=== PATIENT | male | born 1995 | race Caucasian/White ===

== ENCOUNTER 2017-02-22 19:43 | Emergency (ER) | payer OTHER ==
[2017-02-22 20:12] VITALS: BP 119/63
--- NOTE | 2017-02-22 21:45 | RAD ---
HISTORY: Right ankle injury COMPARISONS: None VIEWS: 3, Frontal, lateral, and oblique views of the right ankle FINDINGS: BONE DENSITY: Normal. BONES: There is no displaced fracture. JOINTS: There is no arthropathy. ALIGNMENT: There is no dislocation. SOFT TISSUES: Unremarkable. OTHER FINDINGS: None. IMPRESSION: NO ACUTE OSSEOUS INJURY. IF SYMPTOMS PERSIST, RECOMMEND REPEAT IMAGING.
--- NOTE | 2017-02-22 22:06 | UC ---
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 PT WITH PAIN AT MEDIAL MALLEOLAR ZONE. PAIN WITH AMBULATION. - History of Current Complaint Chief Complaint: UCLowerExtremity Stated Complaint: ANKLE INJURY Time Seen by Provider: 02/22/17 21:58 Hx Obtained From: Patient Onset/Duration: Sudden Onset, Lasting Hours, Still Present Severity Initially: Moderate Severity Currently: Moderate Pain Intensity: 3 Pain Scale Used: 0-10 Numeric Aggravating Factor(s): Standing, Ambulation Alleviating Factor(s): Rest, Elevation Able to Bear Weight: Yes - WITH PAIN - Allergies/Home Medications Allergies/Adverse Reactions: Allergies Allergy/AdvReac Type Severity Reaction Status Date / Time No Known Allergies Allergy Verified 02/22/17 20:11 Home Medications: Home Medications Acetaminophen [Mapap] 1,000 mg PO PRN 02/22/17 [History] Amphetamine MIXED SALTS TAB* [Adderall TAB*] 02/22/17 [History] Lisdexamfetamine Dimesylate [Vyvanse] 02/22/17 [History] buPROPion TAB* [Wellbutrin TAB*] 02/22/17 [History] PMH/Surg Hx/FS Hx/Imm Hx Previously Healthy: Yes - Surgical History Surgical History: Yes Surgery Procedure, Year, and Place: LEFT ACL/MENISCUS REPAIR X2 - Family History Known Family History: Negative: Hypertension, Diabetes - Social History Alcohol Use: None Substance Use Type: None Smoking Status (MU): Never Smoked Tobacco Review of Systems Constitutional: Negative Skin: Negative Respiratory: Negative Cardiovascular: Negative Gastrointestinal: Negative Musculoskeletal: Arthralgia, Decreased ROM All Other Systems Reviewed And Are Negative: Yes Physical Exam Triage Information Reviewed: Yes Appearance: Well-Appearing, No Pain Distress, Well-Nourished Vital Signs: Initial Vital Signs Temp 98.1 F 02/22/17 20:06 Pulse 74 02/22/17 20:06 Resp 16 02/22/17 20:06 BP 119/63 02/22/17 20:06 Pulse Ox 98 02/22/17 20:06 Vital Signs Reviewed: Yes Eyes: Positive: Conjunctiva Clear ENT: Positive: Hearing grossly normal Neck: Positive: Supple Respiratory: Positive: No respiratory distress, No accessory muscle use Cardiovascular: Positive: Pulses Normal Abdomen Description: Positive: Soft Musculoskeletal: Positive: No Edema, ROM Limited @ - RIGHT ANKLE, Other: - TTP RIGHT ANKLE MEDIAL MALLEOLAR ZONE OVER TENDON. NO BONY TENDERNESS Neurological: Positive: Alert Psychological: Positive: Age Appropriate Behavior Skin: Negative: rashes Diagnostics - Radiology RIGHT ANKLE XRAY Xray Interpretation: No Acute Changes Radiology Interpretation Completed By: Radiologist Lower Extremity Course/Dx - Differential Dx/Diagnosis Provider Diagnoses: RIGHT ANKLE SPRAIN Discharge - Discharge Plan Condition: Stable Disposition: HOME Patient Education Materials: Ankle Sprain (ED) [facility] - Additional Instructions: XRAY NEGATIVE FOR FRACTURE OR DISLOCATION. REST, ICE, COMPRESS ELEVATE. GEL SPLINT AND CRUTCHES NEEDED FOR COMFORT. FOLLOW-UP WITH [facility] OR HERE IF NOT IMPROVING EXPECTED.
== END 2017-02-22 22:29 | disposition home or self-care (01) ==
LOC: UCEAST 19:43
DX: S93.401A Sprain of unspecified ligament of right ankle, initial encounter (principal); X58.XXXA Exposure to other specified factors, initial encounter; Y93.66 Activity, soccer; Y92.9 Unspecified place or not applicable
CPT/HCPCS: 99202; G0463

== ENCOUNTER 2019-04-01 00:23 | Observation (INO) | payer OTHER ==
--- NOTE | 2019-04-01 02:19 | ED ---
GI/ HPI - HPI Summary HPI Summary: This patient is a 23 year old M presenting to [facility] with a chief complaint of a ping pong ball in his rectum since 1999 today. Pt states he cannot get it out. The patient rates the pain 9/10 in severity. Has had some bleeding per rectum. NPO since 22:00. Pt does not have any medical problems, past surgeries, or FHx. - History of Current Complaint Chief Complaint: EDRectalPain Time Seen by Provider: 04/01/19 02:07 Stated Complaint: PING PONG ACCIDENT PER PT Hx Obtained From: Patient Onset/Duration: Started Hours Ago - since 1999 today Timing: Constant Severity: Moderate Current Severity: Moderate Pain Intensity: 9 Associated Signs and Symptoms: Positive: Other: - positive - pain Aggravating Factor(s): Nothing Alleviating Factor(s): Nothing - Allergy/Home Medications Allergies/Adverse Reactions: Allergies Allergy/AdvReac Type Severity Reaction Status Date / Time No Known Allergies Allergy Verified 04/01/19 00:41 PMH/Surg Hx/FS Hx/Imm Hx Previously Healthy: No Sensory History: Denies: Hx Cataracts, Hx Vision Problem, Hx Deafness EENT History: Denies: Hx Deafness, Hx Auditory Problems Neurological History: Denies: Hx Dementia - Surgical History Surgical History: Yes Surgery Procedure, Year, and Place: LEFT ACL/MENISCUS REPAIR X2 Infectious Disease History: No Infectious Disease History: Denies: Traveled Outside the [place] in Last 30 Days - Family History Known Family History: Negative: Hypertension, Diabetes - Social History Alcohol Use: None Substance Use Type: Reports: None Smoking Status (MU): Never Smoked Tobacco Review of Systems Constitutional: Other - positive - pain Genitourinary: Other - positive - ping pong ball in his rectum All Other Systems Reviewed And Are Negative: Yes Physical Exam - Summary Physical Exam Summary: Constitutional: Well-developed, Well-nourished, Alert. (-) Distressed Skin: Warm, Dry HENT: Normocephalic; Atraumatic Eyes: Conjunctiva normal Neck: Musculoskeletal ROM normal neck. (-) JVD, (-) Stridor, (-) Nuchal rigidity Cardio: Rhythm regular, rate normal, Heart sounds normal; Intact distal pulses; Radial pulses are 2+ and symmetric. (-) Murmur Pulmonary/Chest wall: Effort normal. (-) Respiratory distress, (-) Wheezes, (-) Rales Abd: Soft, (-) tenderness, (-) Distension, (-) Guarding, (-) Rebound Musculoskeletal: (-) Edema Rectal: unable to palpate foreign body Lymph: (-) Cervical adenopathy Neuro: Alert, Oriented x3 Psych: Mood and affect Normal Triage Information Reviewed: Yes Vital Signs On Initial Exam: Initial Vitals Temp Pulse Resp BP Pulse Ox 98.4 F 87 16 146/84 96 04/01/19 00:36 04/01/19 00:36 04/01/19 00:36 04/01/19 00:36 04/01/19 00:36 Vital Signs Reviewed: Yes Diagnostics - Vital Signs Vital Signs Temp Pulse Resp BP Pulse Ox 04/01/19 00:36 98.4 F 87 16 146/84 96 - Laboratory Result Diagrams: 04/01/19 03:55 04/01/19 03:55 Lab Statement: Any lab studies that have been ordered have been reviewed, and results considered in the medical decision making process. - Radiology ABD X-ray Radiology Interpretation Completed By: ED Physician Summary of Radiographic Findings: Impression: Foreign body noted in the rectum Re-Evaluation - Re-Evaluation First Eval Re-Evaluation Time: 05:58 Comment: Dr. Adams is at bedside performing procedure. GIGU Course/Dx - Course Course Of Treatment: 23-year-old male presents with foreign body in rectum, unable to palpate on rectal exam. Will consult surgry and GI regarding removal - Diagnoses Provider Diagnoses: Rectal foreign body - Physician Notifications Discussed Care Of Patient With: Rosibel Pink Time Discussed With Above Provider: 02:23 Instructed by Provider To: Other - Dr. Pink recommends calling GI. At 0230, Dr. Adams says she will discuss the pts case with Dr. Pink. Discharge ED - Sign-Out/Discharge Documenting (check all that apply): Sign-Out Patient Signing out patient TO: Varun Gibbons Patient Received Moderate/Deep Sedation with Procedure: No - Discharge Plan Referrals: No Primary Care Phys,NOPCP [Primary Care Provider] - - Attestation Statements Document Initiated by Scribe: Yes Documenting Scribe: Abdelrahman Leal Provider For Whom Scribe is Documenting (Include Credential): Dr. Vick Elizalde MD Scribe Attestation: I, Abdelrahman Leal, scribed for Dr. Vick Elizalde MD on 04/01/19 at 0732. Scribe Documentation Reviewed: Yes Provider Attestation: The documentation as recorded by the scribe, Abdelrahman Leal accurately reflects the service I personally performed and the decisions made by me, Dr. Vick Elizalde MD Status of Scribe Document: Viewed
[2019-04-01 04:08] LABS: ABS Eosinophils 0.3 10^3/ul (0-0.6); ABS Lymphocytes 2.8 10^3/ul (1.0-4.8); ABS Monocytes 0.9 10^3/ul (0-0.8); ABS Neutrophils 5.5 10^3/ul (1.5-7.7); Eosinophil % 2.8 %; Hematocrit 44 % (42-52); Hemoglobin 15.2 g/dL (14.0-18.0); Lymphocyte % 29.5 %; Mean Corpuscular HGB Conc 35 g/dL (31-36); Mean Corpuscular Hemoglobin 32 pg (27-31); Mean Corpuscular Volume 91 fL (80-94); Mean Platelet Volume 8.8 fL (7.4-10.4); Platelet Count 238 10^3/uL (150-450); Red Blood Count 4.84 10^6 /uL (4.18-5.48); Red Cell Distribution Width 12 % (10-15); White Blood Count 9.4 10^3/uL (3.5-10.8)
[2019-04-01 04:30] LABS: Albumin 4.7 g/dL (3.2-5.2); BUN/Creatinine Ratio 12.1 (8-20); C Reactive Protein 1.58 mg/L (<8.01); Calcium 9.6 mg/dL (8.6-10.3); EGFR African American 105.6 (>60); EGFR Non-African American 87.2 (>60); Globulin 2.3 g/dL (2-4); Potassium 3.9 mmol/L (3.5-5.0); Total Bilirubin 0.8 mg/dL (0.2-1.0)
[2019-04-01] MEDS ORDERED: fentaNYL* 50 MCG/ML 2 ML VIAL (100 MCG VIAL) ONE ×4 (04:33→23:06)
[2019-04-01] MEDS ORDERED: Midazolam* 1 MG/ML 10 ML VIAL (10 MG) ONE (04:33)
--- NOTE | 2019-04-01 08:56 | ED ---
Progress - Progress Note Progress Note: Patient is received as a sign out from Dr. Elizalde to Dr. Gibbons at 0700 shift change pending surgical/GI consult. 0832 - Dr. Zaragoza has evaluated the patient in ED, Dr. Zaragoza to admit the patient to his services. Re-Evaluation - Re-Evaluation First Eval Re-Evaluation Time: 08:32 Comment: Patient to be admitted to Dr. Zaragoza's services. Course/Dx - Course Course Of Treatment: Patient is received as a sign out from Dr. Elizalde to Dr. Gibbons at 0700 04/01/19 shift change pending surgical/GI consult. 0832 - Dr. Zaragoza has evaluated the patient in ED, Dr. Zaragoza to admit the patient to his services. - Diagnoses Provider Diagnoses: Rectal foreign body - Provider Notifications Discussed Care Of Patient With: Benson Zaragoza Time Discussed With Above Provider: 08:32 Instructed by Provider To: Other - 0832 - Dr. Zaragoza has evaluated the patient in ED, Dr. Zaragoza to admit the patient to his services. Discharge ED - Sign-Out/Discharge Documenting (check all that apply): Patient Departure - admit, Receiving Sign- Out Receiving patient FROM: Vick Elizalde - Discharge Plan Condition: Stable Disposition: ADMITTED TO [facility] Referrals: No Primary Care Phys,NOPCP [Primary Care Provider] - - Attestation Statements Document Initiated by Scribe: Yes Documenting Scribe: MEREDITH MIRANDA Provider For Whom Scribe is Documenting (Include Credential): BRADLY GIBBONS MD Scribe Attestation: I, MEREDITH MIRANDA, scribed for BRADLY GIBBONS MD on 04/01/19 at 0855. Status of Scribe Document: Ready
[2019-04-01] MEDS ORDERED: PEG 3000 GI LAVAGE* 1 GALLON PO ONE (08:59)
[2019-04-01] MEDS ORDERED: Ondansetron INJ* 2 MG/ML VIAL IV PRN (09:01)
[2019-04-01] MEDS: NS 0.9% 1000 ML** 1,000 ML IV SCH (09:34)
--- NOTE | 2019-04-01 10:23 | PRO ---
DATE: 04/01/19 - ROOM #333 REFERRING PHYSICIAN: Vick Elizalde MD PROCEDURE: Flexible sigmoidoscopy and attempted removal of sigmoid colon foreign body. INDICATION: Ping pong ball struck in the sigmoid colon. See preprocedure consult. The patient is afebrile with a normal white count. His bowel sounds are normal. Digital rectal was tolerated well. FINDINGS: Initial views show intact mucosa and no stool. There was no bleeding. There were a couple of small bruising points in the last few centimeters of rectum. Flexible sigmoidoscope was advanced and at about 25 to 30 cm encountered a round object. The largest Patricia net available was inserted and was able to get around the object an estimated 40%. It was seen that it was not folded over a majority of the object. At least 3 times it slipped off after seeming to be partially engaged. A change was then made for a double- channel scope. An ERCP balloon 15 mm was advanced beyond the foreign body and inflated. One could see that it engaged the foreign body as there was tension on the retrieval balloon as it was being withdrawn, but then it will slide through with a pop. It could not disengage the ping pong ball from the acute narrow angulation in the sigmoid colon. Trying with a double-channel scope again with the retrieval net deployed, it would not take an orientation separate from the retrieval balloon and thus provided no practical advantage. Attempts were made over an hour. IMPRESSION: Sigmoid colon foreign body - still retained, though with no sense of pressure necrosis or impending ischemia. Surgery consult will be obtained. It might seem reasonable to lavage from above in an attempt to wash the foreign body down to the rectum where under deeper sedation the rectum could be evacuated. The limits of this exam have been reached. The results of this were signed out to the emergency room attending and surgical consult. [id number]/[facility] #: [id number] FIONA
--- NOTE | 2019-04-01 10:40 | HP ---
AMENDED REPORT NOW INCLUDES DESIGNATED COSIGNER - ESIGNED BEFORE ADJUSTMENTS CC: [facility] * PRIORITY ADMISSION HISTORY AND PHYSICAL: DATE OF ADMISSION: This patient was seen on 04/01/19 in the [facility] Emergency Department. ATTENDING SURGEON: Dr. Benson Zaragoza * (dictated by Rafael De Jesus NP). CHIEF COMPLAINT: Rectal pain and bleeding. 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 yesterday evening. The patient states he cannot get it out. He initially rated the pain at 9/10 in severity. He has noticed some bleeding per rectum. He has had nothing to eat or drink since 10 p.m. last evening. He underwent an abdominal x-ray, which confirmed a 5 cm foreign body overlying the rectum. Dr. Adams performed a sigmoidoscopy in the emergency department and the foreign body is located at approximately [address] Zaragoza was consulted and explained to the patient that perhaps the ping pong ball could be dislodged and moved further down towards the rectum by drinking a GoLYTELY bowel prep laxative and then with exam under anesthesia in the operating room possibly could be extracted rectally. Dr. Zaragoza also explained to the patient if it could not be extracted rectally that he may require abdominal surgery. Dr. Zaragoza explained the rationale for the plan and the patient agrees to proceed with drinking the GoLYTELY. PAST MEDICAL HISTORY: Generally healthy. He does take medications for ADD. PAST SURGICAL HISTORY: Left ACL meniscus repair x2. MEDICATIONS: 1. Wellbutrin 300 mg p.o. daily. 2. Adderall 10 mg p.o. daily. 3. Lamictal 200 mg p.o. daily. 4. Vyvanse 70 mg p.o. daily. ALLERGIES: No known drug allergies. FAMILY HISTORY: No known anesthesia complications, bleeding tendencies or clotting disorders. SOCIAL HISTORY: He is a tom at [employer]; he has never smoked tobacco. He denies the use of substances and occasionally drinks alcohol. REVIEW OF SYSTEMS: Constitutional: No fevers or chills. Respiratory: No recent upper respiratory infections. Cardiovascular: No anginal chest pain. Gastrointestinal: No nausea or vomiting; last bowel movements was sometime yesterday before the incident of the insertion of the ping pong ball; no chronic constipation or diarrhea; since the incident, he did notice some rectal bleeding. Genitourinary: No dysuria. Musculoskeletal: Normal strength and tone. Neurologic: No headache or blurred vision. Psychiatric: Affect is appropriate. General: No previous anesthesia complications. No history of deep vein thrombosis or pulmonary embolism. No history of bleeding tendencies or blood transfusions. PHYSICAL EXAMINATION GENERAL SURVEY: The patient is a 23-year-old male, well developed, well nourished, in no acute distress. VITAL SIGNS: Height 5 feet 11 inches, weight 220 pounds, body mass index 30. Blood pressure 120/60, pulse 75 and regular, respiratory rate 18, temperature 98.4, O2 saturation 96% on room air. HEENT: Benign. NECK: Supple. No cervical lymphadenopathy. LUNGS: Breath sounds bilaterally clear and equal. HEART: Regular rate and rhythm. No murmurs or rubs appreciated. BACK: No CVA tenderness. ABDOMEN: Active bowel sounds, soft, nondistended. Mild tenderness in the suprapubic region in the left lower quadrant with deep palpation. No guarding. No obvious masses or organomegaly. No surgical scars. GENITALIA EXAM: Deferred. RECTAL EXAM: Done with sigmoidoscopy by Dr. Adams. MUSCULOSKELETAL: Full range of motion. No gross deformities. NEUROLOGIC: Alert and oriented x3, cooperative. SKIN: Warm, dry, intact. IMPRESSION: Rectal foreign body. PLAN: The patient will be admitted as an observation patient to the short stay surgical unit; he will drink GoLYTELY bowel prep laxative and then be kept n.p.o. for surgery by Dr. Zaragoza later today; he will be maintained on IV fluids and he will have pain medication and antiemetic available as needed. TIME SPENT: Sixty minutes with greater than 50% in [id number] history taking , physical examination, and coordination of care. RAFAEL DE JESUS NP [id number]/[facility] #: [id number] FIONA
--- NOTE | 2019-04-01 10:40 | CONS ---
GASTROENTEROLOGY CONSULT: DATE OF CONSULT: CONSULTING PHYSICIAN: Vick Elizalde MD REASON FOR CONSULT: Rectal foreign body. HISTORY OF PRESENT ILLNESS: This 23-year-old [place] yanely comes in stating a ping pong ball is trapped in his rectum. He says he was involved in activities with his girlfriend using various sex toys and says several items were inserted and came out, but a ping pong ball did not. He notes that others have been able to pass items, but he has not been able to do so. He strained quite a bit at home and had some bleeding. He had a meal of pasta at around 10:30 p.m. hoping to have things move through spontaneously. He states he has not had any trouble with his gastrointestinal tract before. His bowel habits is regular daily and without the use of laxatives. He has never had any abdominal surgery. He is generally in good health. PAST MEDICAL HISTORY: ADHD. MEDICATIONS AT HOME: 1. Wellbutrin. 2. Adderall. 3. Vyvanse. SOCIAL HISTORY: He is from [facility], [place] as he started college a little late. As far as he knows his his girlfriend is healthy. He has never had any rectal trauma or defecatory problems before. ROS - normal 12 points; no history of cardiac or pulmonary disease PHYSICAL EXAMINATION: He is a healthy-appearing young man in no overt distress. He is experiencing crampy abdominal pain sporadically in waves about every 5 to 10 minutes. There has not been any vomiting. HEENT exam is unremarkable. He is anicteric. He has no adenopathy. His lungs are clear. His heart sounds are normal. The abdomen is symmetric with normal bowel sounds , firm, but without any guarding. Perianal inspection is normal. Rectal reveals diminished sphincter tone, no palpable abnormality. Extremities show no edema. DIAGNOSTIC STUDIES/LAB DATA: Hemoglobin 15.2, hematocrit of 44, white count 9.4 , platelets 238. Chem profile normal. CRP 1.58. KUB: Foreign body projecting over the mid pelvis, midline with no free air. IMPRESSION: Rectal foreign body which given its round shape and lack of any edging will be difficult to extract. It has a low short term (hours) risk of direct injury but could cause pressure necrosis. Discussion was held with him regarding the sequential approach that will be taken using sigmoidoscopy and added various instruments, unsedated if the item is easily found and then with progressive sedation. He knows that admission and the operating room may be needed. 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 [id number]/[facility] #: [id number] MTDD
[2019-04-01] MEDS: Ketorolac INJ* 30 MG/ML 1 ML VIAL IV PRN (11:07)
--- NOTE | 2019-04-01 11:51 | PN ---
Progress Note - Progress Note Date of Service: 04/01/19 SOAP: Subjective: Patient seen and examined earlier in the ER at 0845 and now on the floor [address] Adams and Elsa Olivas, GUILLERMO He has ping pong ball in rectum, felt to be at about 15 cms from the anal verge and unable to be removed manually and with an endoscope He has no abdominal pain, no fever or tachycardia and has a normal WBC AXR reviewed Objective: Temp Pulse Resp BP Pulse Ox 97.6 F 67 18 139/75 100 04/01/19 10:45 04/01/19 10:45 04/01/19 10:45 04/01/19 10:45 04/01/19 10:45 PEX: Comfortable Lungs are clear Abd is soft and non-distended. NABS throughout. No tenderness, rigidity or guarding. No peritoneal irritation Rectal exam not performed at this time. Labs and AXR reviewed Assessment: Foreign body-ping pong ball in rectum. Unable to be removed with endoscope by Dr. Adams Plan: Will plan to take to operating room and use either spinal or general anesthetic later today to remove foreign body. Will attempt trans-anal removal (hopefully ball will have migrated to the distal rectum) and removal with direct visualization with appropriate retractors and visualization. Will also have flexible sigmoidoscope and upper operating scope in the OR for another attempt at endoscopic removal with anesthesia if trans-anal attempts fail. If these techniques are not successful, he will require laparoscopy and possible laparotomy with colotomy for removal. The patient has taken 2L of Go-Lytely to attempt to flush ball distally and he has tolerated this well. Will not give more, as ball may be obstructing lumen. PLAN: Anorectal exam under anesthesia, removal of rectal foreign body, possible intraoperative flexible sigmoidoscopy, possible diagnostic laparoscopy, possible exploratory laparotomy with colotomy, possible colon resection, possible colostomy. The procedure was discussed in detail with the patient and the risks of, but not limited to, of bleeding, infection, abscess, colon perforation, injury to peritoneal and retroperitoneal structures, possible bowel resection, possible ostomy, anesthetic risks, discomfort, and blood clots were all explained. He gives his informed consent to proceed.
[2019-04-01] MEDS ORDERED: Lidocaine 1% w EPI 1:200,000* SDV 30 ML VIAL ONE (18:19)
[2019-04-01] MEDS ORDERED: Bupivacaine 0.5%* 50 ML MDV VIAL ONE (18:20)
[2019-04-01] MEDS ORDERED: Lidocaine 2% JELLY* 20 ML (for OR use) ONE (18:20)
[2019-04-01] MEDS ORDERED: Midazolam* 1 MG/ML 2 ML VIAL (2 MG) ONE (18:28)
[2019-04-01] MEDS ORDERED: Propofol* 10 MG/ML 20 ML BTL ONE (18:31)
[2019-04-01] MEDS ORDERED: Rocuronium* 10 MG/ML VIAL ONE ×2 (18:32→21:15)
[2019-04-01] MEDS ORDERED: Lidocaine 2% PF * 5 ML VIAL ONE (18:32)
[2019-04-01] MEDS ORDERED: Piperacillin/Tazobactam VIAL*) 3.375 GM VIAL (COMPD & OVERRIDE) IVPB ONE (21:12)
[2019-04-01] MEDS ORDERED: Bupivacaine 0.25% W/EPI* 10 ML SDV ONE (21:13)
[2019-04-01] MEDS ORDERED: ZOSYN 3.375 GM x ONE DOSE over 30 miuntes IVPB ×2 (22:00)
[2019-04-01] MEDS ORDERED: Sugammadex * 500 MG/5 ML VIAL IV PUSH ONE (22:12)
--- NOTE | 2019-04-01 22:19 | OP ---
Operative Report - Blank - Operative Report Date of Operation: 04/01/19 Note: OPERATIVE REPORT Pre-op: Rectal foreign body (ping pong ball) Post-Op: Same, ball in descending colon Procedure:Flexible sigmoidoscopy, laparoscopy and removal of left colon foreign body Surgeon: MD Mila Asst: PRASHANTH Carrillo Anes: general with local , Dr. Covarrubias IVF: 1.5 l crystalloid EBL:min Specimen: Ping pong ball Drain: none Wound: 1 Findings: Unable to removed ball from sigmoid and left colon, conversion to laparoscopy and able to "milk" ball down to rectal vault where it was removed trans-anally without difficulty. To PACU
[2019-04-01] MEDS ORDERED: Acetaminophen IV 1GM/100ML * 1,000 MG/100 ML VIAL IVPB ONE (22:37)
[2019-04-01] MEDS ORDERED: Naloxone* 0.4 MG/ML 1 ML VIAL IV PRN (22:37)
[2019-04-01] MEDS: fentaNYL* 50 MCG/ML 2 ML VIAL (100 MCG VIAL) IV PRN ×2 (23:09→23:23)
[2019-04-01] MEDS ORDERED: Ondansetron INJ* 2 MG/ML VIAL ONE (23:32)
[2019-04-02] MEDS: Ketorolac INJ* 30 MG/ML 1 ML VIAL IV PRN ×3 (00:47→14:00)
[2019-04-02] MEDS: NS 0.9% 1000 ML** 1,000 ML IV SCH ×2 (00:50→07:47)
[2019-04-02] MEDS: HYDROmorphone INJ* 0.5 MG/0.5 ML SYRINGE IV PRN ×2 (03:08→05:31)
[2019-04-02 06:28] LABS: ABS Eosinophils 0.1 10^3/ul (0-0.6); ABS Lymphocytes 1.9 10^3/ul (1.0-4.8); ABS Monocytes 0.9 10^3/ul (0-0.8); ABS Neutrophils 7.6 10^3/ul (1.5-7.7); Eosinophil % 0.6 %; Hematocrit 38 % (42-52); Hemoglobin 12.8 g/dL (14.0-18.0); Lymphocyte % 18.2 %; Mean Corpuscular HGB Conc 34 g/dL (31-36); Mean Corpuscular Hemoglobin 31 pg (27-31); Mean Corpuscular Volume 92 fL (80-94); Mean Platelet Volume 8.9 fL (7.4-10.4); Nucleated Red Blood Cells % 0.1; Platelet Count 206 10^3/uL (150-450); Red Blood Count 4.08 10^6 /uL (4.18-5.48); Red Cell Distribution Width 12 % (10-15); White Blood Count 10.5 10^3/uL (3.5-10.8)
--- NOTE | 2019-04-02 09:04 | PN ---
Progress Note - Progress Note Date of Service: 04/02/19 SOAP: Subjective: Feels much better Good appetite, wants to eat Passing flatus Minimal incisional pain Objective: Temp Pulse Resp BP Pulse Ox 98 F 58 16 113/53 100 04/02/19 06:23 04/02/19 07:27 04/02/19 07:27 04/02/19 07:27 04/02/19 07:27 Intake & Output 03/31/19 04/01/19 04/02/19 04/03/19 06:59 06:59 06:59 06:59 Intake Total 4828 981 Output Total 800 Balance 4828 181 Weight 220 lb 220 lb Intake: IV Fluids 2499 981 LR 1400 NS (0.9%) 981 NS 100ML, Zosyn 3.375G 100 IVPB 969 NS (0.9%) 969 Oral 1360 Output: Urine 800 Other: Estimated Void Medium # Voids 3 PEX: Comfortable Lungs are clear Abd is soft and non-distended. Bowel sounds are present and are hyperactive Incision CDI Laboratory Results - last 24 hr 04/02/19 05:24 WBC 10.5 RBC 4.08 L Hgb 12.8 L Hct 38 L MCV 92 MCH 31 MCHC 34 RDW 12 Plt Count 206 MPV 8.9 Neut % (Auto) 72.7 Lymph % (Auto) 18.2 [place] % (Auto) 8.3 Eos % (Auto) 0.6 Baso % (Auto) 0.2 Absolute Neuts (auto) 7.6 Absolute Lymphs (auto) 1.9 Absolute Monos (auto) 0.9 H Absolute Eos (auto) 0.1 Absolute Basos (auto) 0.0 Absolute Nucleated RBC 0.0 Nucleated RBC % 0.1 Assessment: POD#1 s/p laparoscopic removal of left colon foreign body Doing well Plan: Advance diet D/C IVF Analgesia D/C home today-instructions given, will arrange outpatient follow up Care and findings discussed with patient and I also discussed with his father on phone last night after surgery.
--- NOTE | 2019-04-02 14:27 | OP ---
DATE OF OPERATION: 04/01/19 - ROOM #331 DATE OF : 89 SURGEON: Benson Zaragoza MD BUILDING MANAGER: PRASHANTH Julio ANESTHESIOLOGIST: Dr. Covarrubias. ANESTHESIA: General with local. PRE-OP DIAGNOSIS: Foreign body (ping-pong ball in rectum). POST-OP DIAGNOSIS: Foreign body (ping-pong ball) in distal descending colon OPERATIVE PROCEDURE: Flexible sigmoidoscopy, laparoscopy with removal of ping- pong ball from descending colon. ESTIMATED BLOOD LOSS: Minimal. IV FLUIDS: 1.5 L of crystalloids. WOUND CLASSIFICATIONS: I. COMPLICATIONS: None. DRAINS: None. SPECIMENS: Ping-pong ball. FINDINGS: The ping-pong ball was initially felt to be in the rectum on initial presentation, but appeared to be more in the descending colon when it was pushed more proximally with the endoscopic portion of the procedure and from the previous endoscopy performed earlier in the day. Ball was removed with laparoscopic manipulation of the left colon and taken out transanally. BRIEF HISTORY: Mr. Phillip Hanley is a 23-year-old gentleman presented to the emergency room early this morning with a self-placed ping-pong ball into the rectum. Our negotiator attempted to remove this with the endoscope in the emergency room, but was unsuccessful. The patient was admitted and kept n.p.o. He was given limited bowel prep to see if the ping-pong ball would be passed and released into the rectal vault. He remained afebrile. His laboratory work was unremarkable. He had no abdominal pain or signs of perforation. He is being taken to the operating room tonight for an attempted transanal removal of the ping-pong ball, possible was sigmoidoscopy, possible laparoscopy with laparotomy and bowel resection. Procedure was discussed with patient and the discussion with him is clearly outlined in the preoperatively typed progress note. DESCRIPTION OF PROCEDURE: Written informed consent was obtained, the abdomen was marked with indelible ink and the patient was taken to the operating room, placed in the supine position. Sequential compression devices were placed in the lower extremities and a warming blanket was placed. General anesthesia was administered and the patient was placed in lithotomy position. The perineum was prepped and draped in usual sterile fashion. Timeout verification was completed. Lidocaine 1% with epinephrine and 0.5% percent plain Marcaine was used to perform a perianal block in usual fashion. Digital rectal exam revealed no foreign bodies and placing retractors into the anus, I was not able to identify the ping-pong ball into the distal rectum. We then passed the flexible sigmoidoscope up to about 30 cm and here we were able to identify the ping-pong ball and the area of significant tortuosity at this portion of the colon. Over the next [id number], we had tried multiple attempts using retrieval bags, snares, and attempting to pass a Vasquez catheter beyond, but all of this was unsuccessful due to the sharp angulation of the colon in this area and the fact that the ball moved easily and I suspected it was pushed more proximally with each manipulation and was unable to be grasped. At this point, decision was made to proceed with laparoscopy. The endoscope was removed. I noted no evidence of mucosal injury on the sigmoid colon and rectum that was visualized. The abdomen was then prepped and draped in usual sterile fashion. The abdominal wall had been marked. He was given preoperative IV antibiotics. Time -out verification was then completed. A small transverse incision was made just above the umbilicus and the peritoneal cavity was entered under direct vision. A 12 mm blunt port was inserted and the abdomen was insufflated to 15 mmHg. A 5 mm port was placed in the right lower quadrant and a second 5 mm port was placed in the suprapubic position. Looking into the abdomen, there was no evidence of a perforation or purulence. There was some serous fluid in the pelvis. I was able to identify the ping-pong ball in the lateral eda-dl-firqow descending colon where there was a noticeable bulge. At this point, using two bowel graspers, I was able to gently "milk" and gently manipulate the ball distally carefully by squeezing the ball just above and this went down to a very redundant sigmoid colon down into the rectum and below the peritoneal reflection. At this point, an home care assistant was able to remove the ping-pong ball easily from the rectal vault manually. It was apparent that there was a very redundant sigmoid colon thus explaining why it was so difficult to identify and remove the ball with the flexible sigmoidoscope. Also, noted was a small serosal tear along the pelvic brim on the sigmoid colon area, most likely from the colonoscopy where the sigmoid colon was adherent to the anterior lateral abdominal wall. A single 2-0 silk serosal stitch was then used to close this. This was not an obvious transmural perforation and closed the serosal injury nicely. No evidence of injury noted to the remainder of the left colon. All ports removed under direct vision of the camera. The umbilical fascia was closed with interrupted 0-Vicryl suture. The skin and all three incisions were approximated with subcuticular 4-0 Vicryl suture. Steri-Strips were applied. The patient tolerated the procedure well, was taken to recovery room in stable condition. [id number]/[facility] #: [id number] FIONA
[2019-04-02 17:36] VITALS: BP 104/50
--- NOTE | 2019-04-03 12:32 | DS ---
CC: [facility] * DISCHARGE SUMMARY: DATE OF ADMISSION: 04/01/19 DATE OF DISCHARGE: 04/02/19 PRINCIPAL DIAGNOSIS: Rectal foreign body, ping pong ball. PROCEDURES PERFORMED: Flexible sigmoidoscopy, diagnostic laparoscopy, and removal of left colon ping pong ball/foreign body. CONDITION ON DISCHARGE: Good. DISPOSITION: Home. DIET: Regular. MEDICINES: Included nonsteroidal pain medicines p.r.n. for discomfort. He is also given a prescription for Percocet 5/325 1 tablet p.o. q.4 hours, #12 with no refills. He was also continued on his bupropion 150 mg daily, his Adderall 10 mg daily, Lamictal 200 mg daily, and his Vyvanse 70 mg daily. POSTOP FOLLOWUP: A surgical appointment was made to be seen in 7 to 10 days for followup. He had limited activity with no heavy lifting or straining, but he was on the drive when he felt comfortable and taking no narcotic pain medicine, he was able to shower and walk stairs. HISTORY OF PRESENT ILLNESS: Mr. Phillip Hanley is a 23-year-old gentleman who presented to the emergency room with a foreign body in the rectum, which he described as a ping pong ball. This had caused some minor bleeding and inserted by himself. His laboratory workup was unremarkable. He showed no signs of peritonitis. Plain x-ray showed the ping pong ball in the proximal-to- mid rectum. Initially, in the emergency room, he was seen by Dr. Isaac Adams from Gastroenterology, who performed a flexible sigmoidoscopy with intravenous sedation and cardiac monitoring. He was unable to extract the ball with the usual endoscopic techniques. HOSPITAL COURSE: The patient was then seen in surgical consultation. He was admitted to the surgical service. He showed no signs of fever, tachycardia, or signs of peritonitis. His white blood cell count was normal. He was kept n.p.o. and started on IV fluids. He was given 2 L of GoLYTELY in an attempt to propel the ball down into the rectum. Plans were made to be taken to the operating room and later that day he was taken to the operating room and under general anesthesia he initially underwent a transanal attempted extraction, but the ball was not identified. Once again, intraoperatively a flexible sigmoidoscopy was performed and using multiple techniques and attempts, we were unable to remove the ball. Diagnostic laparoscopy was then performed and the ping pong ball was identified in what appeared to be the distal descending colon. The ball was successfully propelled down to the remainder of the distal colon using appropriate instruments down into the rectum where it was able to be removed manually transanally. The patient tolerated the procedure well and spent 1 night in the hospital. On hospital day #1, he was afebrile. His white blood cell count was normal. He was passing gas. Incisions were healing nicely and he tolerated a regular diet. He was discharged home with the above instructions. [id number]/[facility] #: [id number] MTDDon
== END 2019-04-02 17:03 | disposition home or self-care (01) ==
LOC: ED 00:23 → SSU 09:01
PROVIDERS: ADMIT Surgery; ATTEND Surgery
DX: T18.4XXA Foreign body in colon, initial encounter (principal); X58.XXXA Exposure to other specified factors, initial encounter; Y92.9 Unspecified place or not applicable; K62.89 Other specified diseases of anus and rectum
CPT/HCPCS: 36415; 74018; 80053; 85025; 86140; 88300; 96361; 96374; 96375; 96376; 99156; 99157; 99285; A9270-GY; G0378; J1170; J1885; J2001; J2250; J2405; J2543; J2704; J3010; J3490